=== PATIENT | male | born 1970 | race Caucasian/White ===

== ENCOUNTER 2016-07-06 15:01 | Emergency (ER) | payer OTHER ==
[2016-07-06 15:17] LABS: BASOPHIL 0.8 % (0-2); EOSINOPHIL 3.2 % (0-5); HCT 44.5 % (42.0-52.0); HGB 15.5 g/dl (13.2-18.0); LYMPHOCYTE 23.4 % (15-48); MCH 31.1 pg (25.0-31.0); MCHC 34.8 g/dL (32.0-36.0); MCV 89.4 fL (78.0-100.0); MONOCYTE 12.2 % (0-12); MPV 9.5 fL (6.0-9.5); NEUTROPHIL 60.4 % (41-80); PLT 294 K/uL (150-400); RBC 4.98 M/uL (4.70-6.00); RDW 12.6 % (11.5-14.0); WBC 6.6 K/uL (4.0-10.5)
[2016-07-06 15:34] LABS: INR 1.04 (0.9-1.2); PROTHROMBIN TIME 13.2 SECONDS (11.7-14.0); PTT 28.1 SECONDS (23.2-31.4)
[2016-07-06 15:43] LABS: CKMB 2.68 ng/mL (0.97-4.94); MYOGLOBIN 49 ng/mL (26-65); PRO-BNP 48 pg/mL (0-125); TROPONIN T < 0.010 ng/mL
[2016-07-06 15:45] LABS: ALBUMIN 4.7 g/dL (3.5-5.0); BILIRUBIN - TOTAL 0.4 mg/dL (0.1-1.0); GLOBULIN (CALCULATION) 2.6 g/dL (2.2-4.2); MAGNESIUM 2.03 mg/dL (1.40-2.10); POTASSIUM 4.2 mmol/L (3.5-5.1); TOTAL PROTEIN 7.3 g/dL (6.4-8.3)
== END 2016-07-06 16:44 | disposition home or self-care (01) ==
LOC: FER 15:01
PROVIDERS: Emergency Medicine
DX: M94.0 Chondrocostal junction syndrome [Tietze] (principal)
CPT/HCPCS: 36415; 71010; 80053; 82550; 82553; 83735; 83874; 83880; 84484; 85025; 85610; 85730; 93005; J1885